=== PATIENT | female | born 1975 | race Hispanic/Latino ===

== ENCOUNTER 2017-12-07 06:26 | Day surgery (SDC) | payer BC ==
[2017-12-04 10:25] LABS: BUN Blood Urea Nitrogen 13 mg/dL (6-20); Bicarbonate 23 mEq/L (21-31); Glucose Level 102 mg/dL (65-120); Potassium 4.9 mEq/L (3.6-5.0); Sodium Level 135 mEq/L (135-145)
--- NOTE | 2017-12-04 10:33 | RAD REPORT ---
EXAM DESCRIPTION: RAD - Chest Pa And Lat (2 Views) - 12/04/2017 9:23 am CLINICAL HISTORY: Preop chest, pending lumpectomy COMPARISON: None. TECHNIQUE: PA and lateral views of the chest were obtained. FINDINGS: The lungs are clear. Heart size is normal and central vasculature is within normal limit s. No pleural effusion or pneumothorax seen. No acute bony finding noted. No aortic abnormality. IMPRESSION: No acute cardiopulmonary process.
[2017-12-04 10:38] LABS: Absolute Lymphocytes (CBC) 2.2 K/uL (0.7-4.9); Absolute Monocytes 0.4 K/uL (0.1-1.3); Absolute Neutrophil 2.6 K/uL (1.8-8.0); Basophils % 0.7 % (0-1.3); Eosinophils % 1.9 % (0-4.4); Lymphocytes % 40.2 % (15.3-44.8); MCH 26.6 pg (27.0-35.0); MCV 80.1 fL (80-100); Monocytes % 8.2 % (3.3-12.3); RBC Red Blood Cell Count 4.62 M/uL (3.86-4.86)
[2017-12-04 11:26] LABS: Blood Morphology Comment NOT SEEN (NOT SEEN); MPV 9.7 fL (7.6-11.3); Platelet Estimate ADEQ; Urine White Blood Cell Casts OK
--- NOTE | 2017-12-04 16:26 | EKG ---
Test Date: 2017-12-04 Test Time: 09:04:02 Wedding Designer: RAFA MEASUREMENT RESULTS: Intervals: Rate: 72 IN: 144 QRSD: 72 QT: 382 QTc: 418 [place]: P: 6 IN: 144 QRS: 53 T: 26 INTERPRETIVE STATEMENTS: Normal sinus rhythm Low voltage QRS Borderline ECG No previous ECG available for comparison Electronically Signed On 12-04-17 16:23:42 CDT by Fam Patiño
[2017-12-07] MEDS ORDERED: Ringers Lactate 1,000 ML IV ONE (06:32)
[2017-12-07] MEDS ORDERED: MIDAZOLAM HCL 2 MG/2 ML INJ ONE ×2 (07:25→08:11)
[2017-12-07] MEDS ORDERED: ROCURONIUM 50 MG/5 ML VIAL IV ONE (07:25)
[2017-12-07] MEDS ORDERED: LIDOCAINE 2% MPF 5 ML VIAL ONE (07:25)
[2017-12-07] MEDS ORDERED: PROPOFOL 200 MG/20 ML VIAL IV ONE ×2 (07:25→08:11)
[2017-12-07] MEDS ORDERED: FENTANYL CITR 100 MCG/2 ML ONE ×3 (07:26→09:04)
[2017-12-07] MEDS ORDERED: LIDOCAINE 1% MPF 5 ML VIAL ONE (08:11)
--- NOTE | 2017-12-07 08:43 | RAD REPORT ---
EXAM DESCRIPTION: US - Brst,Preop NL Wire Init w/Guid - 12/07/2017 7:56 am CLINICAL HISTORY: Needle localization right breast COMPARISON: Biopsy ultrasound imaging November 2017 and November 2016 FINDINGS: Patient presents for ultrasound-guided needle localization of enlarging mass 12 o'clock ri ght breast. Time-out procedure was performed. Consent was obtained as part of the surgical consent. Preliminary imaging again identified the lobulated 3 centimeter mass in the 12 o'clock right breast. Right breast was prepped and draped in the usual sterile fashion. From a lateral approach, skin and d eeper tissues were anesthetized with 1% lidocaine. Under sonographic guidance a Tyro Mammo lock needle was advanced. Tip was placed at the lateral nelly in of the mass. Density of the mass precluded passing the localization needle through the mass itself . Hookwire was set. There was firm tissue around the periphery of the nodule slightly deflecting the needle tip. An additional 22 gauge needle was advanced along the the same pathway with the tip extend ing into the lateral margin of the mass. Patient tolerated the procedure without complication. Patient was transferred to the surgical holding area pending surgical biopsy. IMPRESSION: Ultrasound-guided needle localization as detailed.
[2017-12-07] MEDS ORDERED: CEFAZOLIN/SWI 1gm 1 GM/10 ML SYR ONE (08:50)
[2017-12-07] MEDS ORDERED: KETOROLAC 30 MG/ML INJ ONE (09:28)
[2017-12-07] MEDS ORDERED: ONDANSETRON 4 MG/2 ML VIAL ONE (09:28)
--- NOTE | 2017-12-07 09:40 | P.BOP ---
Preoperative diagnosis: right breast mass Postoperative diagnosis: same Primary procedure: Excisional biopsy of right breast mass neddle localized Territory Sales Professional: Colleen Drake (Myron) Estimated blood loss: <10cc Specimen: mass Findings: mass, lesion within the specimen by Dr Alvarez Anesthesia: General Complications: None Transferred to: Recovery Room Condition: Good
[2017-12-07] MEDS: MORPHINE 10 MG/ML VIAL ONE ×4 (10:04→10:25)
[2017-12-07] MEDS ORDERED: PROMETHAZINE 25 MG/ML VIAL ONE (10:04)
--- NOTE | 2017-12-07 10:09 | RAD REPORT ---
EXAM DESCRIPTION: US - Surgical Specimen - 12/07/2017 9:31 am FINDINGS: Sonography of the surgical specimen shows the 3 centimeter mass to be contained within the specimen.
[2017-12-07] MEDS ORDERED: CODEINE 30MG/APAP 300MG TAB ONE (10:47)
--- NOTE | 2017-12-07 22:34 | DS ---
Date of Discharge: 12/07/2017 Diagnosis: Right breast mass. Procedure: Right breast lumpectomy, needle localized. Disposition: Home. Activity: As tolerated. No lifting. Follow up in my office in 1 week. Call for appointment [phone]. Keep the area dry for 48 hours, then may shower. Keep Steri-Strips intact. The patient was adv ised importance of breast support. For medications, see orders. VESNA/HALEIGH Voice ID: [id number] Report ID: [id number]
--- NOTE | 2017-12-07 22:34 | OP ---
Date of Procedure: 12/07/2017 Surgeon: Oliver Coon MD Song Writer: ANABEL Jung. Preoperative Diagnosis: Right breast mass. Postoperative Diagnosis: Right breast mass. Procedure: Right breast lumpectomy, needle localized. Estimated Blood Loss: Less than 10 cc. Specimen: Mass. Findings: Mass lesion within the specimen by Dr. Alvarez. Anesthesia: General plus local. Indications: This is a case of 42-year-old patient, found to have an enlarging mass in mammogram and surgical excision recommended. The patient fully explained the benefits, alternatives, and risks of right breast lumpectomy, needle localized, which include, but not limited to infection, bleeding, da mage to adjacent structures, anesthesia complication, RI, and even . She also understands this may not relieve any symptoms, she might need more than one surgical intervention. She went this morn ing to the [facility]oscopy Suite where she received localization of the lump. The patient then came to the OR for a lumpectomy. Procedure In Detail: The right breast was prepped and draped in a sterile fashion. A needle and wir e were kept intact at all times. After that, we made a curvilinear incision over the area of the nee dle. The incision was carried down to breast tissue, and mass was found, removed from the rest of th e tissue and sent to the radiologist who confirmed the lesion within the specimen with intact needle. At that moment, I proceeded then to irrigate the area, obtained hemostasis and then closed the area with 4-0 PDS in a running fashion and Steri-Strip on top, this after complete hemostasis. Sponge count and instrument count is correct . VESNA/HALEIGH Voice ID: [id number] Report ID: [id number]
== END 2017-12-07 11:45 | disposition home or self-care (01) ==
LOC: OR 06:26
PROVIDERS: ATTEND Surgery
PROC: 0HBT0ZZ Excision of Right Breast, Open Approach (ICD-10-PCS; principal; 2017-12-07 08:30)
DX: N63.10 Unspecified lump in the right breast, unspecified quadrant (principal)
CPT/HCPCS: 19285; 36415; 71046; 76098; 80048; 81025; 85025; 88305; 88307; 93005; J0690; J2250; J2405; J2550; J3010

== ENCOUNTER 2018-10-19 11:30 | Day surgery (SDC) | payer BC ==
[2018-10-19 11:43] LABS: Absolute Lymphocytes (CBC) 1.8 K/uL (0.7-4.9); Absolute Monocytes 0.4 K/uL (0.1-1.3); Absolute Neutrophil 2.6 K/uL (1.8-8.0); Basophils % 1.1 % (0-1.3); Eosinophils % 1.7 % (0-4.4); Lymphocytes % 37.4 % (15.3-44.8); MPV 8.5 fL (7.6-11.3); Monocytes % 7.6 % (3.3-12.3); RBC Red Blood Cell Count 4.93 M/uL (3.86-4.86)
[2018-10-19] MEDS ORDERED: DOXYCYCLINE 200 MG in NA CHLORIDE 0.9% 250 ML IVPB SCH (12:00)
[2018-10-19] MEDS ORDERED: Ringers Lactate 1,000 ML IV ONE (12:04)
[2018-10-19] MEDS ORDERED: PROPOFOL 200 MG/20 ML VIAL IV ONE (12:52)
[2018-10-19] MEDS ORDERED: METHYLERGONOVINE 0.2MG/ML AMP IM ONE (12:52)
[2018-10-19] MEDS ORDERED: MIDAZOLAM HCL 2 MG/2 ML INJ ONE (12:53)
[2018-10-19] MEDS ORDERED: FENTANYL CITR 100 MCG/2 ML ONE (12:53)
[2018-10-19] MEDS ORDERED: LIDOCAINE 2% MPF 5 ML VIAL ONE (12:53)
[2018-10-19] MEDS ORDERED: SILVER NITRATE 1 APPL TOP ONE (13:25)
[2018-10-19] MEDS ORDERED: OXYTOCIN 10 UNIT/ML ML IV ONE (13:44)
[2018-10-19] MEDS ORDERED: MORPHINE 4 MG/ML SYR ONE (14:13)
--- NOTE | 2018-10-19 14:59 | PREOPHP ---
Date of Admission: 10/19/2018 History Of Present Illness: Ms. Duff is a 43-year-old female, 5, para 2-0-2-2, now at approximately 9+ weeks gestation. She has been followed by me in early for advanced ma ternal age, prior history of miscarriages and a low progesterone. She began bleeding and cramping ov er the last 48 hours. On office exam, I was unable to see a developed fetus and cardiac motion. Thi s was confirmed through ultrasound at [facility]. She is scheduled for admission for dilatation and curettage of the uterine endometrium for completion of an inevitable . Past Medical History: Includes two prior term pregnancies, two prior miscarriages with one with a D and C. She has no other significant hospitalizations, accidents, illnesses, or injuries. Family History: Noncontributory. Allergies: SHE HAS NO KNOWN ALLERGIES. Review of Systems: She reports no recent cough, cold, fever, or chills. No recent nausea or vomiting. She denies any b reast lumps. She denies any bowel or bladder issues. Physical Examination: General: Reveals female, in no apparent distress. Neck: Supple without adenopathy or thyromegaly. Lungs: Clear. Cardiac: Regular rate and rhythm, without murmurs. Breasts: Not examined. Abdomen: Nontender without organosplenomegaly. Pelvic: Dark blood present. Cervix closed. Bimanual, no abnormalities. Extremities: No cyanosis, clubbing, or edema. Impression: Inevitable . Plan: The patient will undergo dilatation and curettage of the uterine endometrium. Risks and benef its are discussed. She has signed operative permit in my presence. JANET/HALEIGH Voice ID: [id number]
--- NOTE | 2018-10-19 19:20 | OP ---
Surgeon: Thai Magana MD Anesthesiologist: Ricardo Biggs CRNA, and Dr. Deep Bonilla M.D. Preoperative Diagnosis: Nine-plus week with inevitable . Procedure: Dilatation and curettage uterine endometrium. Postoperative Diagnosis: Nine-plus week with inevitable . Description Of Procedure: After a satisfactory level of general anesthesia was obtained, the patient was prepped and draped in the usual fashion for vaginal surgery in high leg holders. A weighted spe culum was placed and posterior vagina and cervix visualized and grasped with single-tooth tenaculum, dilated to accept an 8 curved suction curette, productive of moderate amount of tissue, followed by s harp curettage and then suction curettage. The patient received 0.2 mg IM of Methergine and dilute s olution Pitocin was added to the IV fluids. She was awakened, taken to recovery room in satisfactory condition. Estimated total blood loss was less than 5 cc. JANET/HALEIGH Voice ID: [id number] Report ID: [id number]
--- NOTE | 2018-10-19 19:26 | DS ---
Date of Discharge: 10/19/2018 Final Hospital Discharge Diagnosis: Inevitable . Complications: None. Procedure: Dilatation and curettage for completion of . Hospital Course: The patient is a 43-year-old female, 5, para 2-0-2-2 at 9+ weeks g estation with documented intrauterine demise on ultrasound through the hospital, and admitted w ith bleeding and cramping with a diagnosis of inevitable . She underwent dilatation and cure ttage for completion of . She is Rh positive blood type, admission hemoglobin and hematocrit of 13.6 and 41.0. She was dismissed with a script for Cytotec 100 mcg to be taken q.6 hours x4 tabl ets with Tylenol No.3 #5 for pain relief. She is Rh positive blood type, is dismissed to be seen zoraida k in my office in 2 weeks with the usual post D and C activity restrictions. JANET/HALEIGH Voice ID: [id number] Report ID: [id number]
== END 2018-10-19 15:12 | disposition home or self-care (01) ==
LOC: OR 11:30
PROVIDERS: ATTEND Specialist
PROC: 10D17ZZ Extraction of Products of Conception, Retained, Via Natural or Artificial Opening (ICD-10-PCS; principal; 2018-10-19 13:00)
DX: O03.4 Incomplete spontaneous abortion without complication (principal); Z3A.09 9 weeks gestation of pregnancy; O09.521 Supervision of elderly multigravida, first trimester
CPT/HCPCS: 36415; 85025; 88305; J2210; J2250; J2590; J2704; J3010

== ENCOUNTER → 2019-07-28 | Day surgery (SDC) | payer BC ==
[2019-07-25 13:30] LABS: Urine Appearance CLEAR; Urine Bilirubin NEGATIVE (NEG); Urine Blood NEGATIVE (NEG); Urine Color YELLOW; Urine Glucose NEGATIVE (NEG); Urine Microscopic Reflex NO UMIC; Urine Protein NEGATIVE (NEG); Urine Urobilinogen 0.2 mg/dL (0.2-1.0); Urine pH 5.5 (5.0-7.0)
[2019-07-25 13:42] LABS: Absolute Lymphocytes (CBC) 1.6 K/uL (0.7-4.9); Basophils % 1.2 % (0-1.3); Hematocrit 34.7 % (36.0-45.0); Lymphocytes % 38.6 % (15.3-44.8); MPV 8.4 fL (7.6-11.3); RBC Red Blood Cell Count 4.17 M/uL (3.86-4.86)
[~2019-07-28] MED LIST: BUPIVACAINE 0.25% PF 30 ML VIAL ONE; FENTANYL CITR 100 MCG/2 ML ONE; FENTANYL CITR 250 MCG/5 ML ONE; GLYCOPYRROLATE 0.2 MG/ML SYR ONE; HYDROCODONE/APAP 5/325 MG TAB ONE; KETOROLAC 30 MG/ML INJ ONE; LIDOCAINE 2% MPF 5 ML VIAL ONE; MIDAZOLAM HCL 2 MG/2 ML INJ ONE; MORPHINE 10 MG/ML VIAL ONE; ONDANSETRON 4 MG/2 ML VIAL ONE; ROCURONIUM 50 MG/5 ML VIAL IV ONE; Ringers Lactate 1,000 ML IV ONE; SCOPOLAMINE HYDROBROMIDE PATCH TD ONE; dexAMETHasone 10 MG/ML VIAL ONE; propofoL 200 MG/20 ML VIAL IV ONE
--- OUTSIDE RECORDS SUMMARY | 2019-07-28 07:03 | XMS REPORT ---
:1975 [facility] Address [address] [place] [address] Dr. Vallejo [address] [place] [id number] Care Team Providers Name Role Phone Unavailable Unavailable Unavailable Problems This patient has no known problems. Allergies, Adverse Reactions, Alerts This patient has no known allergies or adverse reactions. Medications This patient has no known medications.
[2019-07-28] MEDS: CEFAZOLIN/SWI 2gm 2 GM/20 ML SYR ONE ×3 (07:42→08:15)
[2019-07-28 14:00] VITALS: BP 118/72; TEMP 97.5; O2SAT 98
--- NOTE | 2019-07-28 21:56 | OP ---
Date of Procedure: 07/28/2019 Surgeon: Teresa Webster MD Student Affairs Vice President: Dai Hogan. Preoperative Diagnoses: Menorrhagia, fibroid uterus (AUB-L), and dysmenorrhea. Postoperative Diagnoses: Menorrhagia, fibroid uterus (AUB-L), and dysmenorrhea. Procedures Performed: Total laparoscopic hysterectomy, vaginal morcellation for removal of the speci men and bilateral salpingectomy. Anesthesia: General. Specimens: Bilateral tubes and uterus with multiple fibroids, morcellated specimen. Complications: No complications. Drains: No drains. Condition: Stable. Findings: Uterus about 14-16 week size with a large fundal fibroid and multiple other leiomyomata. Ovaries completely unremarkable. No other endometriosis seen. Description Of Procedure: After informed consent was verified, the patient was taken back to OR, [facility] in supine fashion on the operating table. After general anesthesia was given, she was placed in a dorsal lithotomy position using Bradley stirrups. Arms were tucked by the side. SCDs were placed. 2 g of Ancef were given. The abdomen was prepped with ChloraPrep. Vulva, vagina, and perineum with Betadine. Draped in a sterile fashion. Pelvic exam showed a mobile uterus with a large fundal fibro id. No adnexal masses were palpable. No nodularity. Speculum was placed to expose the cervix. Anterior lip grasped with an Allis clamp. VCare was place d in the usual fashion. Sullivan was placed to drain the bladder and attached for retrograde filling. A 1 cm supraumbilical incision in the midline vertical was made above the umbilicus about 5 cm using the scalpel. Fascia was incised, tagged with 0 Vicryl and peritoneum entered sharply with scissors. S-retractors were placed. Edward introduced. Site of entry was checked, unremarkable. Upper abdom inal surfaces including the peritoneal surfaces and omentum were unremarkable. Gallbladder and liver were normal. The patient was placed in Trendelenburg position. Large fibroid uterus was seen. Aft er visualizing both the sidewalls and identifying the ureters, which were undistorted in their anatom y without endometriosis, I decided to continue this laparoscopically. So, 10 suprapubic and two 5 le ft lower quadrant and right lower quadrant ports were placed. Fascia injected with Marcaine at all i ncision sites and at the skin before the ports were placed. LigaSure 5 mm was used to take down the mesosalpinx, tube, utero-ovarian ligament, and round ligament on the left side. Then, broad ligament was opened up and connected creating a bladder flap on to the other side all the way to the round li gament on the opposite side. Posteriorly, the peritoneum was opened up, isolating the broad ligament and the vessels going down all the way to the uterosacral with the LigaSure. Then, the broad ligame nt was skeletonized, vessels exposed. Bladder peritoneum cleared up on the left side on the anterior vaginal wall. On the opposite side, similar dissection was performed taking down the mesosalpinx, t ube, utero-ovarian ligament, and round ligament, opening the posterior broad ligament to the uterosac ral attachment and then anteriorly the peritoneum was already opened up. So, dissection was carried out. Broad ligament taken down. Vessels isolated. Then monopolar hook blade was used to enter the vesicovaginal space anteriorly in the midline on top of the VCare cup. Once the bladder was pushed d own and the plane was opened up. Then, medial openings for both medial spaces were created for both vessels on the right and the left. Then, LigaSure was used to cauterize and leave a nice pedicle and then, the bipolar basket tip was used to do the same thing again. Then, the LigaSure to cut. The c ardinal ligaments were also taken down with the help of the LigaSure. On the left side, the same dissection was performed without any problems. Then, colpotomy was perfor med with a monopolar hook blade circumferentially and the specimen was pulled into the vagina. Chávez speculum in the posterior aspect and small Deavers anteriorly, vaginal morcellation was performe d with a 10 blade. This took about 30 minutes of the case. Once the specimen was all extracted, the n vaginal occlusion bulb was placed in the vagina, went back laparoscopically. Colpotomy was closed with 0 PDS sutures, 2 simples on both angles and 3 ubalolo-vr-sdxks holding the complete thickness of the rectovaginal septum, anterior precervical fascia including all the epitheli al edges to approximate. Once there was excellent approximation and good hemostasis, then proceeded to have irrigation and suction in this area and the edges were cauterized with the tip of a bipolar. distal part of the tubes were removed. The specimen was retrieved and both ovaries were n ormal. After thorough irrigation and suction, looking at all pedicles and there was hemostasis that was ensured and ureter was visualized and ensured that there was no mechanical elliptical or thermal injury to it to them. Then, the trocars were removed. All the sites of fascia were injected with Ma rcaine. Then, the supraumbilical port was removed and the fascia closed with 0 Vicryl and then supra pubic area in simple 0 Vicryl stitch for the fascial closure. The 4-0 Vicryl interrupted for all 3 incisions and the umbilical incision with continuous running sub cuticular stitch. Vaginal bulb, Sullivan were all removed. Instrument, needle, and sponge counts were correct at the end of the case. The patient tolerated the procedure well. EBL was minimal. She car l be discharged home today. She will have [place] for prescription and 1 week postop. JOSIAH/HALEIGH Voice ID: [id number] Report ID: [id number]
== END ==
LOC: OR 06:24
PROVIDERS: ATTEND Obstetrics & Gynecology
PROC: 0UT74ZZ Resection of Bilateral Fallopian Tubes, Percutaneous Endoscopic Approach (ICD-10-PCS; 2019-07-28)
PROC: 0UT94ZZ Resection of Uterus, Percutaneous Endoscopic Approach (ICD-10-PCS; principal; 2019-07-28 07:30)
DX: N92.0 Excessive and frequent menstruation with regular cycle (principal); N94.5 Secondary dysmenorrhea; D25.1 Intramural leiomyoma of uterus
CPT/HCPCS: 85025; 36415; 86900; 86850; 81025; 86901; 88307; 81003; 58573; J2704; J2250; J3010 ×2; J1100; J0690; J7120 ×3; J2405